=== PATIENT | male | born 1990 | race Caucasian/White ===

== ENCOUNTER 2017-11-12 01:54 | Emergency (ER) | payer BC ==
--- NOTE | 2017-11-12 02:19 | EDPHY ---
H & P Stated Complaint: dizzy, bp 185/130 at 0130, took a clonidine, smoked heroin 2100 HPI/ROS: HPI CHIEF COMPLAINT: Anxiety, hypertension, smoked heroin HISTORY OF PRESENT ILLNESS: This patient is a 27-year-old male, he has a history of hypertension, is currently obtaining Suboxone due to heroin use, he presents emergency room stating that this evening around 9:00 p.m. he smoked heroin he then became anxious, he states that he relapsed doing heroin tonight he checked his blood pressure goes he is feeling somewhat dizzy and anxious any noticed blood pressure to be 170s to 180 systolic over 100s became concerned about this and came to the emergency room. Denies chest pain or shortness of breath. Denies headache. Does state he feels anxious. Patient distally reports to me he took clonidine 0.1 mg double his blood pressure. He tells me that he is post take this regularly but intermittently takes it. I explained to him that deck cause rebound hypertension causes blood pressure to be higher. Past Medical History: Heroin abuse, currently in rehab obtaining Suboxone Past Surgical History: No surgical history Social History: Denies daily use of alcohol, smoked heroin tonight, history of heroin abuse Family History: Noncontributory ROS REVIEW OF SYSTEMS: A comprehensive 10 point review of systems is otherwise negative aside from elements mentioned in the history of present illness. Exam Constitutional anxious, appears well nontoxic triage nursing summary reviewed, vital signs reviewed, awake/alert. Vital signs noted. Hypertensive at triage Eyes normal conjunctivae and sclera, EOMI, PERRLA. HENT normal inspection, atraumatic, moist mucus membranes, no epistaxis, neck supple/ no meningismus, no raccoon eyes. Respiratory clear to auscultation bilaterally, normal breath sounds, no respiratory distress, no wheezing. Cardiovascular rate normal, regular rhythm, no murmur, no edema, distal pulses normal. Gastrointestinal soft, non-tender, no rebound, no guarding, normal bowel sounds, no distension, no pulsatile mass. Genitourinary no CVA tenderness. Musculoskeletal no midline vertebral tenderness, full range of motion, no calf swelling, no tenderness of extremities, no meningismus, good pulses, neurovascularly intact. Skin pink, warm, & dry, no rash, skin atraumatic. Neurologic awake, alert and oriented x 3, AAOx3, moves all 4 extremities equally, motor intact, sensory intact, CN II-XII intact, normal cerebellar, normal vision, normal speech. Psychiatric anxious normal mood/affect. Heme/Lymph/Immune no lymphadenopathy. Differential Diagnosis: Includes but is not limited to in a particular order acute anxiety, heroin abuse, hypertensive urgency, hypertensive emergency Medical Decision Making: Plan for this patient check EKG, basic blood work, check kidney function, IV Ativan right anxiety. See if this improves his hypertension. Re-evaluation: EKG interpretation by me on record in Takes system. Impression time of EKG 2:41 a.m. this is sinus rhythm rate of 91. Otherwise unremarkable EKG. No acute ischemic changes. 0413: Re-evaluation at this time patient's blood pressure 136/96. He is resting comfortably has no complaints denies chest pain shortness of breath. Blood work has been reviewed is unremarkable. Normal kidney function. Recommend keep a blood pressure log 9:00 a.m. 9:00 p.m. records blood pressure. If he continues to have high readings I recommend he follows up his primary care doctor and will most likely get started on a different blood pressure medication. I did explain that he should not take clonidine intermittently as it can cause spikes blood pressure. Understands return emergency room if develops worsening chest pain, shortness of breath, high blood pressure headache or any questions or concerns. Source: Patient - Personal History Current Tetanus/Diphtheria Vaccine: Unsure - Medical/Surgical History Hx Asthma: No Hx Chronic Respiratory Disease: No Hx Diabetes: No Hx Cardiac Disease: No Hx Renal Disease: No Hx Cirrhosis: No Hx Alcoholism: No Hx HIV/AIDS: No Hx Splenectomy or Spleen Trauma: No Other PMH: ADHD, nerve palsy eye, suboxone program. Nasal septum surg, trigger finger surg, htn, heroin rehab - Social History Smoking Status: Light smoker Constitutional: Initial Vital Signs Temperature (C) 36.4 C 11/12/17 01:57 Heart Rate 105 H 11/12/17 01:57 Respiratory Rate 20 11/12/17 01:57 Blood Pressure 180/113 H 11/12/17 01:57 O2 Sat (%) 99 11/12/17 01:57 O2 Delivery Mode Nasal Cannula O2 (L/minute) 2 Allergies/Adverse Reactions: No Known Allergies Allergy (Unverified 11/12/17 01:56) Home Medications: Medication Instructions Recorded clonIDINE 11/12/17 Medical Decision Making - Data Points Laboratory Results: Laboratory Results 11/12/17 02:34 11/12/17 02:34 11/12/17 11/12/17 11/12/17 03:00 02:34 02:34 WBC 8.62 10^3/uL 10^3/uL (3.80-9.50) RBC 5.04 10^6/uL 10^6/uL (4.40-6.38) Hgb 15.1 g/dL g/dL (13.7-17.5) Hct 43.0 % % (40.0-51.0) MCV 85.3 fL fL (81.5-99.8) MCH 30.0 pg pg (27.9-34.1) MCHC 35.1 g/dL g/dL (32.4-36.7) RDW 12.4 % % (11.5-15.2) Plt Count 202 10^3/uL 10^3/uL (150-400) MPV 9.6 fL fL (8.7-11.7) Neut % (Auto) 59.0 % % (39.3-74.2) Lymph % (Auto) 32.9 % % (15.0-45.0) [place] % (Auto) 6.1 % % (4.5-13.0) Eos % (Auto) 1.6 % % (0.6-7.6) Baso % (Auto) 0.3 % % (0.3-1.7) Nucleat RBC Rel Count 0.0 % % (0.0-0.2) Absolute Neuts (auto) 5.07 10^3/uL 10^3/uL (1.70-6.50) Absolute Lymphs (auto) 2.84 10^3/uL 10^3/uL (1.00-3.00) Absolute Monos (auto) 0.53 10^3/uL 10^3/uL (0.30-0.80) Absolute Eos (auto) 0.14 10^3/uL 10^3/uL (0.03-0.40) Absolute Basos (auto) 0.03 10^3/uL 10^3/uL (0.02-0.10) Absolute Nucleated RBC 0.00 10^3/uL 10^3/uL (0-0.01) Immature Gran % 0.1 % % (0.0-1.1) Immature Gran # 0.01 10^3/uL 10^3/uL (0.00-0.10) Sodium 143 mEq/L mEq/L (135-145) Potassium 3.8 mEq/L mEq/L (3.5-5.2) Chloride 99 mEq/L mEq/L (97-110) Carbon Dioxide 29 mEq/l mEq/l (22-31) Anion Gap 15 mEq/L mEq/L (8-16) BUN 11 mg/dL mg/dL (7-23) Creatinine 0.9 mg/dL mg/dL (0.7-1.3) Estimated GFR > 60 Glucose 121 mg/dL H mg/dL (70-100) Calcium 9.5 mg/dL mg/dL (8.5-10.4) Urine Opiates Screen NON-NEGATIVE H (NEGATIVE) Urine Barbiturates NEGATIVE (NEGATIVE) Ur Phencyclidine Scrn NEGATIVE (NEGATIVE) Ur Amphetamine Screen NEGATIVE (NEGATIVE) U Benzodiazepines Scrn NEGATIVE (NEGATIVE) Urine Cocaine Screen NEGATIVE (NEGATIVE) U Marijuana (THC) Screen NON-NEGATIVE H (NEGATIVE) Medications Given: Discontinued Medications Lorazepam (Ativan Injection) 1 mg IVP EDNOW ONE Stop: 11/12/17 02:27 Last Admin: 11/12/17 02:35 Dose: 1 mg Departure - Departure Disposition: Home, Routine, Self-Care Clinical Impression: Anxiety Hypertension Qualifiers: Hypertension type: essential hypertension Qualified Code(s): I10 - Essential ( primary) hypertension Condition: Good Instructions: Hypertension (ED), Anxiety (ED) Referrals: NONE *PRIMARY CARE P,. [Primary Care Provider] - As per Instructions
[2017-11-12] MEDS ORDERED: LORazepam 2 MG/ML INJ IVP ONE (02:26)
[2017-11-12 02:39] LABS: PLATELET COUNT 202 10^3/uL (150-400)
--- NOTE | 2017-11-12 02:43 | CPEKG ---
Heart Rate: 91 RR Interval: 659 P-R Interval: 164 QRSD Interval: 88 QT Interval: 356 QTC Interval: 439 P [place]: 55 QRS [place]: 47 T Wave [place]: 27 EKG Severity - NORMAL ECG - EKG Impression: SINUS RHYTHM Electronically Signed By: Giovanni Balbuena 12-Nov-2017 06:36:47
[2017-11-12 02:46] VITALS: O2SAT 97
[2017-11-12 04:07] VITALS: RESP 16
[2017-11-12 04:27] VITALS: BP 136/87; PULSE 76; TEMP 98.1
== END 2017-11-12 04:27 | disposition home or self-care (01) ==
DX: F41.9 Anxiety disorder, unspecified (principal); I10 Essential (primary) hypertension; F17.200 Nicotine dependence, unspecified, uncomplicated
CPT/HCPCS: 80305; 96374; J2060

== ENCOUNTER 2018-02-11 21:25 | Emergency (ER) | payer BC ==
--- NOTE | 2018-02-11 21:52 | EDPHY ---
H & P Stated Complaint: High BP 200s- in rehab program Time Seen by Provider: 02/11/18 21:49 HPI/ROS: HPI: This is a 27-year-old male who presents Chief Complaint: Elevated blood pressure Location: Heart Quality: Elevated blood pressure Duration: 2 days Signs and Symptoms: no shortness of breath at rest, no shortness of breath on exertion, no cough, no chest pain, no palpitations, no lower extremity edema, no wheezing, no orthopnea, no paroxysmal nocturnal dyspnea, no fever, no injury/ trauma, no hemoptysis, no carpal pedal spasms Timing: Acute on chronic Severity: Moderate Context: Patient has been clean from heroin for approximately 10 days, currently in rehab, taking metoprolol 100 mg extended release per his primary care provider presents with 2 day history of systolics in the 190s to 210 and diastolic 110s to 130s. Patient reports that he has a dull aching generalized headache and feels"off." He denies any chest pain/shortness of breath/ dizziness. Family history of hypertension in both mother and father. Patient denies feeling anxious. Given clonidine initially for the several days during detox but was since been transitioned to Metoprolol. Modifying Factors: Metoprolol 100 mg ER Comment: ROS: see HPI Constitutional: No fever, no chills, no weight loss Eyes: No blurred vision Respiratory: No shortness of breath, no cough Cardiovascular: No chest pain, no palpitations, no lower extremity edema Gastrointestinal: No nausea, no vomiting, no diarrhea Genitourinary: No dysuria Extremities: No myalgias Neurologic: No weakness, no numbness Skin: No rashes Hematologic: No bruising, no bleeding MEDICAL/SURGICAL/SOCIAL HISTORY: Medical/surgical history:ADHD, nerve palsy eye, suboxone program Nasal septum surg, trigger finger surg, htn, heroin rehab Social history: Reports he quit tobacco use 7 days ago. Unemployed. CONSTITUTIONAL: Polite and cooperative nontoxic-appearing young adult male, awake and alert, no obvious distress HEENT: Atraumatic and normocephalic, PERRL, EOMI. Nares patent; no rhinorrhea; no nasal mucosal edema. Tympanic membranes clear. Oropharynx clear, no exudate and moist pink mucosa. Airway patent. No lymphadenopathy. No meningismus. Cardiovascular: Normal S1/S2, regular rate, regular rhythm, without murmur rub or gallop. PULMONARY/CHEST: Symmetrical and nontender. Clear to auscultation bilaterally. Good air movement. No accessory muscle usage. ABDOMEN: Soft, nondistended, nontender, no rebound, no guarding, no peritoneal signs, no masses or organomegaly. No CVAT. EXTREMITIES: 2/2 pulses, strength 5/5, no deformities, no clubbing, no cyanosis or edema. NEUROLOGICAL: no focal neuro deficits. GCS 15. SKIN: Warm and dry, no erythema. no rash. Good capillary refill. Source: Patient, Old records Exam Limitations: No limitations - Personal History Current Tetanus/Diphtheria Vaccine: No Current Tetanus Diphtheria and Acellular Pertussis (TDAP): No - Medical/Surgical History Hx Asthma: No Hx Chronic Respiratory Disease: No Hx Diabetes: No Hx Cardiac Disease: No Hx Renal Disease: No Hx Cirrhosis: No Hx Alcoholism: No Hx HIV/AIDS: No Hx Splenectomy or Spleen Trauma: No Other PMH: ADHD, nerve palsy eye, suboxone program. Nasal septum surg, trigger finger surg, htn, heroin rehab - Social History Smoking Status: Current some day smoker Constitutional: Initial Vital Signs Temperature (C) 37.3 C 02/11/18 21:28 Heart Rate 64 02/11/18 21:28 Respiratory Rate 16 02/11/18 21:28 Blood Pressure 173/121 H 02/11/18 21:28 O2 Sat (%) 98 02/11/18 21:28 O2 Delivery Mode Room Air Allergies/Adverse Reactions: No Known Allergies Allergy (Verified 02/11/18 21:31) Home Medications: Medication Instructions Recorded Lisinopril/Hctz 20/12.5MG 1 ea PO DAILY #30 tab 02/11/18 [Zestoretic/Prinzide 20/12.5MG (*)] Metoprolol ER-Hctz 100-12.5 mg 02/11/18 Medical Decision Making - Diagnostics EKG Interpretation: 12 lead EKG: Indication: Hypertension Rhythm: Normal sinus rhythm, rate 58 beats per minute [place]: Normal Intervals: Normal QRS: Normal ST segments: Normal INTERPRETATION: No acute ischemic changes or arrhythmia The 12 lead EKG was interpreted by myself and with attending. Compared to EKG on 11/12/2017 with no significant changes. ED Course/Re-evaluation: Labs, urinalysis, EKG ordered Vital signs reviewed upon arrival; blood pressure 173/121 EKG shows no acute ischemic changes/arrhythmia 2226: Labs reviewed. No signs of anemia/KAMRAN/electrolyte imbalance. Urine drug screen positive for benzodiazepines. Urinalysis does not show protein. BP at discharge 168/100 Given lisinopril 40 mg in the ER and prescription for lisinopril 20 mg/HCT 12.5 mg daily No signs of end-organ damage. Advised to follow up with primary care provider to rule out renovascular syndrome. This patient was seen under the supervision of my secondary supervising physician. I evaluated care for this patient independently. Discussed this patient with Dr. Ness who did not see the patient. Differential Diagnosis: Differential diagnosis includes but is not limited to - Data Points Laboratory Results: Laboratory Results 02/11/18 21:55 02/11/18 21:55 02/11/18 02/11/18 02/11/18 22:00 21:55 21:55 WBC 11.55 10^3/uL H 10^3/uL (3.80-9.50) RBC 4.54 10^6/uL 10^6/uL (4.40-6.38) Hgb 13.4 g/dL L g/dL (13.7-17.5) Hct 39.9 % L % (40.0-51.0) MCV 87.9 fL fL (81.5-99.8) MCH 29.5 pg pg (27.9-34.1) MCHC 33.6 g/dL g/dL (32.4-36.7) RDW 13.1 % % (11.5-15.2) Plt Count 234 10^3/uL 10^3/uL (150-400) MPV 9.4 fL fL (8.7-11.7) Neut % (Auto) 58.2 % % (39.3-74.2) Lymph % (Auto) 33.2 % % (15.0-45.0) [place] % (Auto) 6.8 % % (4.5-13.0) Eos % (Auto) 1.0 % % (0.6-7.6) Baso % (Auto) 0.5 % % (0.3-1.7) Nucleat RBC Rel Count 0.0 % % (0.0-0.2) Absolute Neuts (auto) 6.72 10^3/uL H 10^3/uL (1.70-6.50) Absolute Lymphs (auto) 3.84 10^3/uL H 10^3/uL (1.00-3.00) Absolute Monos (auto) 0.78 10^3/uL 10^3/uL (0.30-0.80) Absolute Eos (auto) 0.12 10^3/uL 10^3/uL (0.03-0.40) Absolute Basos (auto) 0.06 10^3/uL 10^3/uL (0.02-0.10) Absolute Nucleated RBC 0.00 10^3/uL 10^3/uL (0-0.01) Immature Gran % 0.3 % % (0.0-1.1) Immature Gran # 0.03 10^3/uL 10^3/uL (0.00-0.10) Sodium 139 mEq/L mEq/L (135-145) Potassium 4.0 mEq/L mEq/L (3.5-5.2) Chloride 102 mEq/L mEq/L (97-110) Carbon Dioxide 27 mEq/l mEq/l (22-31) Anion Gap 10 mEq/L mEq/L (8-16) BUN 14 mg/dL mg/dL (7-23) Creatinine 0.8 mg/dL mg/dL (0.7-1.3) Estimated GFR > 60 Glucose 79 mg/dL mg/dL (70-100) Calcium 9.3 mg/dL mg/dL (8.5-10.4) Urine Color YELLOW Urine Appearance CLEAR Urine pH 5.0 (5.0-7.5) Ur Specific [place] 1.020 (1.002-1.030) Urine Protein NEGATIVE (NEGATIVE) Urine Ketones NEGATIVE (NEGATIVE) Urine Blood NEGATIVE (NEGATIVE) Urine Nitrate NEGATIVE (NEGATIVE) Urine Bilirubin NEGATIVE (NEGATIVE) Urine Urobilinogen NEGATIVE EU EU (0.2-1.0) Ur Leukocyte Esterase NEGATIVE (NEGATIVE) Urine Glucose NEGATIVE (NEGATIVE) Urine Opiates Screen NEGATIVE (NEGATIVE) Urine Barbiturates NEGATIVE (NEGATIVE) Ur Phencyclidine Scrn NEGATIVE (NEGATIVE) Ur Amphetamine Screen NEGATIVE (NEGATIVE) U Benzodiazepines Scrn NON-NEGATIVE H (NEGATIVE) Urine Cocaine Screen NEGATIVE (NEGATIVE) U Marijuana (THC) Screen NEGATIVE (NEGATIVE) Medications Given: Discontinued Medications Lisinopril (Zestril) 40 mg PO EDNOW ONE Stop: 02/11/18 22:50 Last Admin: 02/11/18 22:58 Dose: 40 mg Departure - Departure Disposition: Home, Routine, Self-Care Clinical Impression: Essential hypertension Hypertension Qualifiers: Hypertension type: unspecified Qualified Code(s): I10 - Essential (primary) hypertension Condition: Good Instructions: High Fiber Diet (ED), Heart Healthy Diet (ED), Hypertensive Crisis (ED), Hypertension (ED) Additional Instructions: Please avoid any caffeine or stimulants. Take your Metoprolol in the evening and new blood pressure medications lisinopril/hydrochlorothiazide in the morning. Take your daily blood pressure medications and keep a blood pressure log. Follow-up with your primary care provider in 7-10 days. Referrals: VALERIA TALAVERA [Primary Care Provider] - As per Instructions Prescriptions: Lisinopril/Hctz 20/12.5MG [Zestoretic/Prinzide 20/12.5MG (*)] 1 ea PO DAILY #30 tab
--- NOTE | 2018-02-11 21:59 | CPEKG ---
Heart Rate: 58 RR Interval: 1034 P-R Interval: 176 QRSD Interval: 96 QT Interval: 400 QTC Interval: 393 P [place]: 52 QRS [place]: 39 T Wave [place]: 27 EKG Severity - ABNORMAL ECG - EKG Impression: SINUS ARRHYTHMIA, RATE 48-70 EKG Impression: PROBABLE LEFT VENTRICULAR HYPERTROPHY Electronically Signed By: Masha Astorga 12-Feb-2018 16:06:36
[2018-02-11 22:07] LABS: PLATELET COUNT 234 10^3/uL (150-400)
[2018-02-11] MEDS ORDERED: LISINOPRIL 20 MG TAB PO ONE (22:49)
[2018-02-11 23:05] VITALS: BP 168/100
== END 2018-02-11 23:00 | disposition home or self-care (01) ==
DX: I10 Essential (primary) hypertension (principal); F17.200 Nicotine dependence, unspecified, uncomplicated
CPT/HCPCS: 80305